=== PATIENT | male | born 1975 | race Two or more races ===

== ENCOUNTER → 2025-01-05 | Outpatient (CLI) | payer MEDICAID, SELFPAY ==
--- NOTE | 2025-01-05 09:04 | XR_ITS ---
Examination: Lumbar spine, 5 views Technique: Lumbar spine AP, lateral, coned lateral lower lumbar spine, bilateral obliques 5 views Exam date and time: January 05, 2025 0906 hours INDICATIONS: Patient fell off a ladder 3 years ago with injury to lower back, lower back pain. FINDINGS: Satisfactory alignment lumbar vertebral bodies No lumbar fracture Diffuse lumbar degenerative disc disease, moderate L3-L4, L4-L5, L5-S1 Moderate lumbar spondylosis Significant osteophyte formation posteriorly L3-L4, L4-L5 producing spinal stenosis IMPRESSION: No lumbar fracture
== END | disposition home or self-care (01) ==
PROVIDERS: PCP Family Medicine; Referring Provider Orthopaedic Surgery; Visit Provider Orthopaedic Surgery
DX: M54.50 Low back pain, unspecified (principal); S39.92XS Unspecified injury of lower back, sequela; W11.XXXS Fall on and from ladder, sequela
CPT/HCPCS: 72110

== ENCOUNTER → 2025-02-05 | Outpatient (CLI) | payer MEDICAID, SELFPAY ==
--- NOTE | 2025-02-05 11:00 | XR_ITS ---
Exam: MRI knee without contrast, right Date and time of exam: February 05, 2025: 32 hours INDICATIONS: Right knee pain 10 years Technique: Multiple axial, coronal, and sagittal sections on the knee have been obtained. T2-Weighted sagittal, fat-suppressed images, TR 3,500, TE 62, T2 weighted coronal fat-saturated images, TR 3,500, TE 62 Proton density sagittal sections, TR 1800, TE 31. T-1 weighted coronal images, TR 524, TE 13.0 Findings: Medial meniscus anterior horn is intact. Medial meniscus, body horizontal linear tear communicating inferior articular surface. Posterior horn medial meniscus horizontal linear tear communicating inferior articular surface near the inner margin. Lateral meniscus anterior horn is intact Lateral meniscus, body is intact Posterior horn lateral meniscus is intact Anterior cruciate ligament mild attenuation Posterior cruciate ligament appears intact. Knee effusion is small. Quadriceps and patellar tendons appear intact. There is no evidence of tendinosis. Inflammatory change or fracture of Hoffa's fat pad is not seen. Medial patellar facet demonstrates moderate thinning. Lateral patellar facet cartilage demonstrates moderate thinning. Trochlear cartilage demonstrates moderate thinning. Marrow signal adequate. Medial collateral ligament appears intact. No meniscocapsular separation is seen. Illiotibial band and fibular collateral ligament are intact. Biceps femoris tendons appear intact. Medial femoral condylar articular cartilage demonstrates moderate thinning. Lateral femoral condylar articular cartilage demonstratesmoderate thinning. Tibial plateau cartilage demonstrates moderate thinning. Impression: Horizontal linear tears body and posterior horn medial meniscus
== END | disposition home or self-care (01) ==
LOC: SMRI 10:36
PROVIDERS: Referring Provider Orthopaedic Surgery; Visit Provider Orthopaedic Surgery
DX: S83.241A Other tear of medial meniscus, current injury, right knee, initial encounter (principal); X58.XXXA Exposure to other specified factors, initial encounter
CPT/HCPCS: 73721

== ENCOUNTER 2025-03-04 08:40 | Day surgery (SDC) | payer MEDICAID, SELFPAY ==
--- NOTE | 2025-03-03 09:39 | EKG_ITS ---
[facility] Test Date: 2025-03-03 Pat Name: PASTOR MORATAYA Department: Room: - Gender: Male [employer] Tractor Operator: RT STUDENT : 1975 Requested By: Enrique Perez Order Number: [id number] Reading MD: Enrique Perez Measurements Intervals [place] Rate: 57 P: 57 [place]: 154 QRS: 46 QRSD: 95 T: 50 QT: 401 QTc: 393 Interpretive Statements SINUS BRADYCARDIA No previous ECG available for comparison /[id number]/S0/[id number]
[2025-03-03 10:20] VITALS: BMI 29.4
[2025-03-03 11:15] LABS: Basophils # (Auto) 0.0 Thou/mm3 (0.0-0.2); Basophils % (Auto) 1 % (0-2.5); Eosinophils # (Auto) 0.1 Thou/mm3 (0.0-0.5); Eosinophils % (Auto) 2 % (0-10); Hematocrit 46.2 % (41.0-53.0); Hemoglobin 15.3 g/dL (13.5-16.0); Immature Granulocytes Auto 0.02 Thou/mm3 (0.00-0.00); Lymphocytes # (Auto) 2.4 Thou/mm3 (1.0-4.8); Lymphocytes % (Auto) 37 % (10-50); Mean Corpuscular HGB Conc 33.1 g/dl (31.0-37.0); Mean Corpuscular Hemoglobin 28.3 pg (25.0-35.0); Mean Corpuscular Volume 86 fL (80-100); Monocytes # (Auto) 0.4 Thou/mm3 (0.0-0.8); Monocytes % (Auto) 7 % (0-12); Neutrophils # (Auto) 3.4 Thou/mm3 (1.8-7.7); Neutrophils % (Auto) 53 % (37-80); Nucleated Red Blood Cell # 0.00 Thou/mm3 (0.00-0.00); Nucleated Red Blood Cell % 0 /100 WBC (0); Platelet Count 258 Thou/mm3 (140-440); RDW Standard Deviation 45.6 fL (35.1-43.9); Red Blood Count 5.40 Miln/mm3 (4.50-5.90); White Blood Count 6.4 Thou/mm3 (3.8-10.6)
[2025-03-03 11:27] LABS: Alanine Aminotransferase 25 U/L (10-49); Albumin, Serum 4.5 gm/dL (3.5-5.0); Albumin/Globulin Ratio 2.1 (1.2-2.2); Alkaline Phosphatase 58 U/L (46-116); Anion Gap 8 (7-16); Aspartate Amino Transferase 18 U/L (0-34); BUN/Creatinine Ratio 12 Ratio (12-20); Bilirubin,Total 0.8 mg/dL (0.3-1.2); Blood Urea Nitrogen 11 mg/dL (9-23); Calcium 9.8 mg/dL (8.3-10.6); Calcium (Corrected) 9.8 mg/dL (8.5-10.1); Carbon Dioxide 26.3 mMol/L (20.0-31.0); Chloride 107 mMol/L (98-107); Creatinine (Component) 0.9 mg/dL (0.6-1.3); Estimated Creatinine Clearance 101.3 mL/min (>60); Globulin 2.1 gm/dL (2.3-3.5); Glucose 106 mg/dL (74-106); Osmolality,Calculated 280 (275-295); Potassium 4.1 mMol/L (3.4-5.1); Sodium 141 mMol/L (136-145); Total Protein 6.6 gm/dL (5.7-8.2); eGFR > 60 See Note
[2025-03-03 11:51] LABS: INR 1.0 (0.9-1.3); Partial Thromboplastin Time 25.3 Seconds (22.0-36.0); Prothrombin Time 11.4 Seconds (9.0-12.2)
--- NOTE | 2025-03-03 14:56 | ESHP_ITS ---
RE: PASTOR MORATAYA : 1975 DATE OF ADMISSION: 03/03/2025 HISTORY OF PRESENT COMPLAINT: The patient has presented to me with a history of pain in the right knee joint. The patient came in for detailed history and physical on 03/03/2025. The patient has a history of pain, swelling, clicking, and locking of the right knee joint. There is no history of giving way. It interferes with his routine and daily activities. Unable to sleep. The intensity of pain is 7-8/10. Quality of life and activities of daily living is affected. The patient wants something to be done about it. PAST MEDICAL HISTORY: The patient has a history of diabetes mellitus. No history of high blood pressure, asthma, seizure, chest pain, myocardial infarction, or bleeding disorder. PAST SURGICAL HISTORY: Nil available. DRUG HISTORY: The patient is on metformin. ALLERGIES: Nil. FAMILY HISTORY AND SOCIAL HISTORY: The patient denies smoking and drinking and is not working. PHYSICAL EXAMINATION: GENERAL: Normal with person. VITAL SIGNS: Pulse is 72 per minute. Blood pressure is 132/81. NECK: Soft and supple. No mass felt. Trachea is centrally placed. CARDIOVASCULAR SYSTEM: First and second heart sounds are normal. No murmur heard. RESPIRATORY SYSTEM: Bilateral vesicular breath sounds. CHEST: Clear. ABDOMEN: Soft. No masses felt. Bowel sounds present. EXTREMITIES: Right knee examination, mild swelling. There is 2+ tenderness. Active range of motion 0-115 degrees of flexion. Betina's test is positive. Drawer test and Manjinder test were negative. The patient walks with a limp. NEUROVASCULAR: It is intact. IMAGING: MRI scan confirmed torn meniscus with DJD and synovitis with increased joint fluid. Since the patient is symptomatic and is affecting his quality of life, therefore, right knee arthroscopy was discussed and advised. With the help of pictures, model, I explained the whole procedure. All questions were answered. Risks with anesthesia was explained and that includes, but not limited to reaction to anesthetic agents, cardiac arrest, and rarely, it might be fatal. Risks with operation includes infection and if that happens, the patient may need further surgical procedure. Other risks include delayed healing, wound dehiscence, etc. No guarantee is given regarding outcome of the procedure and/or relief of symptoms. Surgery is booked for 03/04/2025. DT: 14:14:51 TT: 14:52:00 Ref: [id number] - TID: [id number]
[2025-03-04] VITALS (9 sets, daily range): BP systolic 102–134; BP diastolic 63–84; PULSE 55–70; RESP 12–18; TEMP 36.3–36.8; O2SAT 97–99; BMI 29.5
[2025-03-04] MEDS: RINGERS LACTATED 1000 ML 1,000 ML 20 ML IV (09:30)
--- NOTE | 2025-03-04 10:58 | SUR.PHASEI ---
pt received from OR in recovery bay 5. pt obtunded, breathing unlabored on oxymask 8l, oral airway in place. v/s stable. pt dressing to right knee cdi. report received from Bia DOWNING and Phi GREENWOOD.
--- NOTE | 2025-03-04 10:59 | ESOP_ITS ---
Date of Procedure 03/04/25 Pre Op Diagnosis 1. Torn medial meniscus right knee joint 2 torn lateral meniscus 3 degenerative joint disease changes 4 synovitis with medial plica and shelf Post Op Diagnosis Same Procedure 1. Partial medial meniscectomy 2 partial lateral meniscectomy 3 chondroplasty 4 partial synovectomy including excision plica shelf Findings Refer dictation Procedure Description The patient was given general endotracheal anesthesia. Once satisfactory anesthesia was achieved, tourniquet was placed on right 2/3 upper thigh. Following that the part was thoroughly prepped and draped. After using Esmarch the tourniquet pressure was raised to 350 mmHg. A skin incision was made proximal to lateral tibial plateau and arthroscope was introduced in the usual fashion. Another a skin incision was made in suprapatellar pouch area and outlet was established. The findings were noted as below. In suprapatellar pouch area significant synovial tissue inflammation was present. Medial plica was present as well. The undersurface of patella showed grade chondromalacia. The anterior femoral condyle showed grade 3 chondromalacia. Soft tissue impingement was present. The patellar tracking was checked and found to be good. The medial compartment showed grade 3 chondromalacia for medial tibial plateau and 2/3 chondromalacia medial femoral condyle. The medial meniscus showed degeneration and tear of the posterior horn and anterior horn . Another skin incision was made proximal to medial tibial plateau and a probe was introduced and findings were confirmed. The anterior cruciate ligament was intact. The anterior drawer test was performed and found to be good. The lateral compartment showed intact lateral femoral condyle except at the most posterior and at the notch area. 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 Anterior medial aspect of the lateral tibial plateau showed grade III/IV chondromalacia. Lateral meniscus showed degeneration and small tear of the posterior and anterior horn. A basket was introduced and posterior horn of the medial meniscus was excised. The junction of the posterior horn and body was also torn and that was excised as well. A shaver was introduced and shaving of the posterior horn and anterior horn of medial meniscus was performed. Soft tissue impingement was shaved off. Chondroplasty of the the chondroplasty of the most posterior aspect of the lateral tibial plateau and most anterior aspect was performed medial tibial plateau was performed. The shaving of the body and anterior horn of lateral meniscus was done. The chondroplasty of the patella and and anterior femoral condyle was performed. The soft tissue impingement was shaved off. A partial synovectomy including excision of plica was performed. Copious amount of irrigation was used to irrigate the knee joint. All the debris were removed. 3-0 Prolene was used to close the wound. About 20 mL of quarter percent Marcaine along with 10 mg of Duramorph was injected. Patient tolerated procedure well. Estimated blood loss was about 5 mL. Prognosis in this case is fair to good. Patient was taken to the recovery room in good condition. Anesthesia GETA Pathology / specimen None Estimated Blood Loss 2 Surgeon Enrique Woodard MD Surgical Staff Operation Date: 03/04/25 09:15 Case Staff PLANS EXAMINER: Enrrique Wilkerson
--- NOTE | 2025-03-04 12:45 | SUR.PHASEII ---
Pt. meets criteria for discharge, VSS, no c/o pain or nausea, IV discontinued without complications, dressing to right knee CDI, discharge instructions provided to pt. and pt.'s with use of flight software test engineer services, verbalized understanding. Pt. escorted to vehicle via w/c with all of belongings by staff.
== END 2025-03-04 12:45 | disposition home or self-care (01) ==
PROVIDERS: Anesthesiology; Referring Provider Orthopaedic Surgery; Visit Provider Orthopaedic Surgery
PROC: (CPT 29870; principal; 2025-03-04 09:00)
DX: S83.241A Other tear of medial meniscus, current injury, right knee, initial encounter (principal); S83.289A Other tear of lateral meniscus, current injury, unspecified knee, initial encounter; X58.XXXA Exposure to other specified factors, initial encounter; Z01.810 Encounter for preprocedural cardiovascular examination; M17.11 Unilateral primary osteoarthritis, right knee; M22.41 Chondromalacia patellae, right knee; M67.51 Plica syndrome, right knee; M65.861 Other synovitis and tenosynovitis, right lower leg
CPT/HCPCS: 29880; 36415; 80048; 80053; 85025; 85610; 85730; 93005; A4217; A4649; J0690; J1100; J1885; J2250; J2405; J2704; J3010; J7120